=== PATIENT | male | born 1995 | race Two or more races ===

== ENCOUNTER 2017-11-20 16:35 | Emergency (ER) | payer OTHER ==
[2017-11-20] MEDS: ALPRAZolam 0.5 MG TABLET PO ×2 (17:37)
[2017-11-20] MEDS: IBUPROFEN 800 MG TABLET. PO ×2 (18:20)
== END 2017-11-20 19:00 | disposition home or self-care (01) ==
LOC: ER 16:35
DX: S00.03XA Contusion of scalp, initial encounter (principal); F12.10 Cannabis abuse, uncomplicated; Y04.2XXA Assault by strike against or bumped into by another person, initial encounter; Y93.89 Activity, other specified; Y92.89 Other specified places as the place of occurrence of the external cause; Y99.8 Other external cause status
CPT/HCPCS: 70450; 99284-25